=== PATIENT | male | born 1985 | race Hispanic/Latino ===

== ENCOUNTER 2018-02-03 19:06 | Emergency (ER) | payer OTHER ==
[~2018-02-03] VITALS: Ht 165.1 cm; Wt 69.9 kg
--- OUTSIDE RECORDS SUMMARY | 2018-02-03 19:08 | XMS REPORT ---
Author Author [facility] Address Unknown Phone Unavailable Care Team Providers Care Ultrasound Technologist Sonographer Name Role Phone UNKNOWN, REFFERING PP Unavailable LETHA WELCH Unavailable Unavailable Problems This patient has no known problems. Allergies, Adverse Reactions, Alerts This patient has no known allergies or adverse reactions. Medications This patient has no known medications. Encounters Start Date/Time End Date/Time Encounter Type Admission Type Attending Clinicians Care Facility Care Department Encounter ID 2017-07-21 02:19:00 2017-07-21 02:19:00 Emergency E [facility] MED [id number] Results Test Description Test Time Test Comments Text Results Atomic Results Result Comments CT, BRAIN, WITHOUT CONTRAST 2017-10-17 23:55:00 Reason for exam:-> ANXIETYReason for exam:->OTALGIAWhat is the patient's sedation requirement?->No Sedation FINAL REPORT CT, BRAIN, WITHOUT CONTRAST CLINICAL INDICATION: Head trauma, headacheANXIETYOTALGIA COMPARISON: February 27, 2015 TECHNIQUE: Noncontrast axial CT imaging of the brain and skull. DOSE REDUCTION: Dose modulation, iterative reconstruction, and/or weight-based adjustment of the mA/kV was utilized to reduce the radiation dose to as low as reasonably achievable. FINDINGS:Cerebral parenchyma: Unremarkable.Midline structures: Normally positioned.Cerebellum and brainstem: Normal.Ventricles: Normal volume.Extra-axial spaces: Unremarkable. Calvarium and skull base: Intact.Paranasal sinuses and mastoid air cells: Visible chambers are clear.Orbital contents: Included portions unremarkable. Additional findings: None. IMPRESSION: No acute or traumatic intracranial abnormality. Signed: JR Gonzalez Robert MDReport Verified Date/Time: 10/17/2017 23:55:31 Reading Location: [facility] B1 [id number] CT Body Reading Room REHENSIVE METABOLIC PANEL 2017-10-17 23:46:00 TOTAL PROTEIN (BEAKER) (test bpkz=016) 8.0 gm/dL 6.0-8.5 ALBUMIN (BEAKER) (test kmam=8525) 4.4 g/dL 3.5-5.0 ALKALINE PHOSPHATASE (BEAKER) (test outn=976) 60 U/L 30-115 BILIRUBIN TOTAL (BEAKER) (test ffhs=009) 0.6 mg/dL 0.1-1.2 SODIUM (BEAKER) (test kjpk=293) 142 meq/L 135-148 POTASSIUM (BEAKER) (test vmjv=603) 3.8 meq/L 3.6-5.5 CHLORIDE (BEAKER) (test ceny=319) 100 meq/L 98-106 CO2 (BEAKER) (test umng=551) 31 meq/L 24-32 BLOOD UREA NITROGEN (BEAKER) (test mqbr=319) 10 mg/dL 10-26 CREATININE (BEAKER) (test yxpi=863) 0.86 mg/dL 0.50-1.20 GLUCOSE RANDOM (BEAKER) (test yxgc=346) 107 mg/dL 70-110 CALCIUM (BEAKER) (test jidu=877) 9.2 mg/dL 8.5-10.5 AST (SGOT) (BEAKER) (test qdsd=066) 28 U/L 5-40 ALT (SGPT) (BEAKER) (test uorl=731) 51 U/L 5-50 EGFR (BEAKER) (test poqj=2167) mL/min/1.73 sq m INSUFFICIENT CLINICAL DATA TO CALCULATE ESTIMATED GFR. CBC W/PLT COUNT & AUTO [id number] 23:43:00* Test Item Value Reference Range Comments WHITE BLOOD CELL COUNT (BEAKER) (test gyfz=959) 8.0 K/ L 4.0-10.0 RED BLOOD CELL COUNT (BEAKER) (test bkhp=106) 5.67 M/ L 4.20-5.80 HEMOGLOBIN (BEAKER) (test dtpq=444) 14.9 GM/DL 13.0-16.8 HEMATOCRIT (BEAKER) (test wsen=878) 45.4 % 40.0-50.0 MEAN CORPUSCULAR VOLUME (BEAKER) (test veab=480) 80.0 fL 82.0-98.0 MEAN CORPUSCULAR HEMOGLOBIN (BEAKER) (test elll=529) 26.2 pg 27.0-33.0 MEAN CORPUSCULAR HEMOGLOBIN CONC (BEAKER) (test ujlx=887) 32.8 GM/DL 32.0- 36.0 RED CELL DISTRIBUTION WIDTH (BEAKER) (test efpj=513) 12.4 % 12.0-15.0 PLATELET COUNT (BEAKER) (test rloi=734) 260 K/CU MM 150-430 MEAN PLATELET VOLUME (BEAKER) (test cymo=626) 8.8 fL 6.5-10.5 NEUTROPHILS RELATIVE PERCENT (BEAKER) (test sjsu=336) 74 % LYMPHOCYTES RELATIVE PERCENT (BEAKER) (test mgtv=043) 14 % MONOCYTES RELATIVE PERCENT (BEAKER) (test ghky=086) 7 % EOSINOPHILS RELATIVE PERCENT (BEAKER) (test pnlx=959) 1 % BASOPHILS RELATIVE PERCENT (BEAKER) (test ejbc=476) 4 % NEUTROPHILS ABSOLUTE COUNT (BEAKER) (test rwgu=346) 5.80 K/ L 1.80-8.00 LYMPHOCYTES ABSOLUTE COUNT (BEAKER) (test ibhx=775) 1.10 K/ L 1.48-4.50 MONOCYTES ABSOLUTE COUNT (BEAKER) (test jvyh=195) 0.60 K/ L 0.00-1.30 EOSINOPHILS ABSOLUTE COUNT (BEAKER) (test eixs=725) 0.10 K/ L 0.00-0.50 BASOPHILS ABSOLUTE COUNT (BEAKER) (test swyo=769) 0.40 K/ L 0.00-0.20
--- OUTSIDE RECORDS SUMMARY | 2018-02-03 19:08 | XMS REPORT | Clinical Summary ---
Author Author [facility] Address Unknown Phone Unavailable Care Team Providers Care Consumer Safety Inspector Name Role Phone PCP Unavailable Allergies Active Allergy Reactions Severity Noted Date Comments Haloperidol Lactate 10/17/2017 Current Medications Prescription Sig. Disp. Refills Start End Date Status Date ALPRAZolam (XANAX) 1 MG Take 1 mg by mouth every Active tablet night as needed for Anxiety. FLUoxetine (PROZAC) 20 MG Take 20 mg by mouth Active tablet daily. doxepin (SINEQUAN) 50 MG Take 50 mg by mouth Active capsule nightly. phenylephrine-acetaminoph Take 2 tablets by mouth 30 each 0 10/17/19 10/31/19 en-GG (MUCINEX FAST-MAX every 6 (six) hours as 18 18 COLD-SINUS) 5-325-200 mg needed (For cold Tab symptoms) for up to 14 days. Active Problems No known active problems Encounters Date Type Specialty Care Team Description 10/17/2017 Emergency Emergency Medicine David Barbour, DO Concussion without loss - of consciousness, initial 10/18/2017 encounter (Primary Dx);Dizziness and giddiness;Acute nasopharyngitis;Anxiety after 02/02/2017 Social History Tobacco Use Types Packs/Day Years Used Date Current Some Day Smoker Cigarettes Smokeless Tobacco: Never Used Tobacco Cessation: Ready to Quit: No Alcohol Use Drinks/Week oz/Week Comments No Sex Assigned at Date Recorded Not on file Last Filed Vital Signs Vital Sign Reading Time Taken Blood Pressure 132/78 10/18/2017 12:03 AM FRAUD EXAMINER Pulse 82 10/18/2017 12:03 AM FRAUD EXAMINER Temperature 37.2 C (98.9 F) 10/18/2017 12:03 AM FRAUD EXAMINER Respiratory Rate 18 10/18/2017 12:03 AM FRAUD EXAMINER Oxygen Saturation 98% 10/18/2017 12:03 AM FRAUD EXAMINER Inhaled Oxygen - - Concentration Weight 75.8 kg (167 lb) 10/17/2017 10:30 PM FRAUD EXAMINER Height 165.1 cm (5' 5") 10/17/2017 10:30 PM FRAUD EXAMINER Body Mass Index 27.79 10/17/2017 10:30 PM FRAUD EXAMINER Plan of Treatment Not on file Results * CT brain without IV contrast (10/17/2017 11:49 PM) Specimen Performing Laboratory GE RIS Narrative FINAL REPORT CT, BRAIN, WITHOUT CONTRAST CLINICAL INDICATION:Head trauma, headache ANXIETY OTALGIA COMPARISON: February 27, 2015 TECHNIQUE:Noncontrast axial CT imaging of the brain and skull. DOSE REDUCTION: Dose modulation, iterative reconstruction, and/or weight-based adjustment of the mA/kV was utilized to reduce the radiation dose to as low as reasonably achievable. FINDINGS: Cerebral parenchyma: Unremarkable. Midline structures: Normally positioned. Cerebellum and brainstem: Normal. Ventricles: Normal volume. Extra-axial spaces: Unremarkable. Calvarium and skull base: Intact. Paranasal sinuses and mastoid air cells: Visible chambers are clear. Orbital contents: Included portions unremarkable. Additional findings: None. IMPRESSION: No acute or traumatic intracranial abnormality. Signed: JR Gonzalez Robert MD Report Verified Date/Time:10/17/2017 23:55:31 Reading Location: [address] Body Reading Room Procedure Note Interface, External Ris In - 10/17/2017 11:57 PM FRAUD EXAMINER FINAL REPORT CT, BRAIN, WITHOUT CONTRAST CLINICAL INDICATION: Head trauma, headache ANXIETY OTALGIA COMPARISON: February 27, 2015 TECHNIQUE: Noncontrast axial CT imaging of the brain and skull. DOSE REDUCTION: Dose modulation, iterative reconstruction, and/or weight-based adjustment of the mA/kV was utilized to reduce the radiation dose to as low as reasonably achievable. FINDINGS: Cerebral parenchyma: Unremarkable. Midline structures: Normally positioned. Cerebellum and brainstem: Normal. Ventricles: Normal volume. Extra-axial spaces: Unremarkable. Calvarium and skull base: Intact. Paranasal sinuses and mastoid air cells: Visible chambers are clear. Orbital contents: Included portions unremarkable. Additional findings: None. IMPRESSION: No acute or traumatic intracranial abnormality. Signed: JR Gonzalez Robert MD Report Verified Date/Time: 10/17/2017 23:55:31 Reading Location: [address] Body Reading Room * CBC with platelet count + automated diff (10/17/2017 11:12 PM) Component Value Ref Range WBC 8.0 4.0 - 10.0 K/ L RBC 5.67 4.20 - 5.80 M/ L Hemoglobin 14.9 13.0 - 16.8 GM/DL Hematocrit 45.4 40.0 - 50.0 % MCV 80.0 (L) 82.0 - 98.0 fL MCH 26.2 (L) 27.0 - 33.0 pg MCHC 32.8 32.0 - 36.0 GM/DL RDW 12.4 12.0 - 15.0 % Platelets 260 150 - 430 K/CU MM MPV 8.8 6.5 - 10.5 fL % Neutros 74 % % Lymphs 14 % % Monos 7 % % Eos 1 % % Baso 4 % # Neutros 5.80 1.80 - 8.00 K/ L # Lymphs 1.10 (L) 1.48 - 4.50 K/ L # Monos 0.60 0.00 - 1.30 K/ L # Eos 0.10 0.00 - 0.50 K/ L # Baso 0.40 (H) 0.00 - 0.20 K/ L Specimen Performing Laboratory Blood [facility] [address] [place] [address] * CBC with platelet count + automated diff (10/17/2017 11:12 PM) Specimen Performing Laboratory Blood Narrative The following orders were created for panel order CBC with platelet count + automated diff. Procedure Abnormality Status --------- - ------ CBC with platelet count ...[[id number]]AbnormalFinal result Please view results for these tests on the individual orders. * Comprehensive metabolic panel (10/17/2017 11:12 PM) Component Value Ref Range Protein, Total 8.0 6.0 - 8.5 gm/dL Albumin 4.4 3.5 - 5.0 g/dL Alkaline Phosphatase 60 30 - 115 U/L Total Bilirubin 0.6 0.1 - 1.2 mg/dL Sodium 142 135 - 148 meq/L Potassium 3.8 3.6 - 5.5 meq/L Chloride 100 98 - 106 meq/L CO2 31 24 - 32 meq/L BUN 10 10 - 26 mg/dL Creatinine 0.86 0.50 - 1.20 mg/dL Glucose 107 70 - 110 mg/dL Calcium 9.2 8.5 - 10.5 mg/dL AST 28 5 - 40 U/L ALT 51 (H) 5 - 50 U/L EGFR Comment: INSUFFICIENT CLINICAL DATA TO CALCULATE mL/min/1.73 sq m ESTIMATED GFR. Specimen Performing Laboratory Blood [facility] [address] [place] [address] after 02/02/2017
[2018-02-03] MEDS ORDERED: XANAX2 MG (19:34)
[2018-02-03] MEDS: ONDANSETRON HCL INJ 2 MG/ML VIAL IV STA (21:06)
[2018-02-03] MEDS: SODIUM CHLORIDE 0.9% 1000ML 1,000 ML IV SCH (22:01)
[2018-02-03 23:30] VITALS: BP 135/72
== END 2018-02-03 23:25 | disposition home or self-care (01) ==
LOC: FSED 19:06
DX: K29.00 Acute gastritis without bleeding (principal); J98.01 Acute bronchospasm; J00 Acute nasopharyngitis [common cold]; B34.8 Other viral infections of unspecified site; R19.7 Diarrhea, unspecified; F90.9 Attention-deficit hyperactivity disorder, unspecified type; F41.9 Anxiety disorder, unspecified
CPT/HCPCS: 71046; 80053; 80076; 80307; 81003; 85025; 96360; 96374; 99283; 99284; J2405